=== PATIENT | male | born 1980 | race Caucasian/White ===

== ENCOUNTER 2017-08-08 21:16 | Emergency (ER) | payer OTHER ==
[~2017-08-08] VITALS: Ht 185.4 cm; Wt 87.9 kg
[~2017-08-08 21:16] MED LIST: DIGOX250 MCG PO; LANOXIN125 MCG PO
[2017-08-08] MEDS ORDERED: NAPROSYN500 MG PO (23:41)
[2017-08-08] MEDS ORDERED: PERCOCET 5/31 TABLET PO (23:41)
[2017-08-09 00:40] VITALS: BP 135/87
== END 2017-08-09 00:43 | disposition home or self-care (01) ==
LOC: EME 21:16 → RME 21:16
PROC: 0RSJXZZ Reposition Right Shoulder Joint, External Approach (ICD-10-PCS; principal; 2017-08-08)
DX: S43.014A Anterior dislocation of right humerus, initial encounter (principal); X50.9XXA Other and unspecified overexertion or strenuous movements or postures, initial encounter
CPT/HCPCS: 73030; 99281; 99284; J2060; J2270; J2405; J3010; J7030

== ENCOUNTER 2017-11-29 11:05 | Day surgery (SDC) | payer OTHER ==
[~2017-11-29] VITALS: Ht 185.4 cm; Wt 83.9 kg
[~2017-11-29 11:05] MED LIST changes: +NAPROSYN500 MG PO; +PERCOCET 5/31 TABLET PO
[2017-11-29 11:23] VITALS: BP 137/93
[2017-11-29 11:26] VITALS: BP 137/93
[2017-11-29 17:55] VITALS: BP 138/94
[2017-11-29 18:38] VITALS: BP 128/83
== END 2017-11-29 18:50 | disposition home or self-care (01) ==
LOC: SDC 11:05
DX: S43.491A Other sprain of right shoulder joint, initial encounter (principal); M25.811 Other specified joint disorders, right shoulder; M24.411 Recurrent dislocation, right shoulder; X58.XXXA Exposure to other specified factors, initial encounter
CPT/HCPCS: C1713; J0171; J0330; J0690; J1100; J1170; J2250; J2405; J2795; Q0175